=== PATIENT | male | born 1975 | race Caucasian/White ===

== ENCOUNTER 2016-10-20 11:13 | Day surgery (SDC) | payer OTHER, SELFPAY ==
[2016-10-13 10:00] LABS: HEMATOCRIT 38.8 % (40.0-51.0); HEMOGLOBIN 11.9 g/dL (13.6-17.8)
--- NOTE | ~2016-10-20 | OP ---
Record Of Operation [facility] [address] [facility] [place]. [address] NAME: KIKI FERRIS MARIETTA : 73 STATUS : [facility]#: [id number] AGE: 41 ADM/REG DATE : 10/20/16 MR#: [id number] REPORT SERV DATE: 10/26/16 DICTATED BY: ADRIANA YEPEZ DATE: 10/25/16 REPORT STATUS : Draft TRANSCRIBED BY: MODL DATE: 10/25/16 DATE OF PROCEDURE: 10/20/2016 PREOPERATIVE DIAGNOSES: 1. Malignant melanoma, anterior abdominal wall periumbilical area. This is a superficial spreading type, thickness 0.35 mm Bull's level 2 with 0 mitotic rate, no ulceration. Associated with dysplastic compound nevus. Tumor is a T1a N0, M0, is status post excisional biopsy. 2. History of Root syndrome. 3. Status post total proctocolectomy with ileoanal J-pouch anastomosis for a multicentric colorectal adenocarcinoma. 4. Status post neoadjuvant chemo and radiation therapy. 5. Creation of diverting ileostomy right lower quadrant. OPERATION: 1. Wide radical resection of skin and subcutaneous tissues of the anterior abdominal wall periumbilical area. 2. Repair of soft tissue defect. POSTOPERATIVE DIAGNOSES: 1. Malignant melanoma, anterior abdominal wall periumbilical area. This is a superficial spreading type, thickness 0.35 mm Bull's level 2 with 0 mitotic rate, no ulceration. Associated with dysplastic compound nevus. Tumor is a T1a N0, M0, is status post excisional biopsy. 2. History of Root syndrome. 3. Status post total proctocolectomy with ileoanal J-pouch anastomosis for a multicentric colorectal adenocarcinoma. 4. Status post neoadjuvant chemo and radiation therapy. 5. Creation of diverting ileostomy right lower quadrant. SURGEON: Adriana Yepez M.D. [employer]ING MACHINE OPERATOR RESIDENT SURGEON: Dr. Abel Negro. ANESTHESIA: General. COMPLICATIONS: None. ESTIMATED BLOOD LOSS: Minimal. COUNTS: Correct. DISPOSITION: PACU, then to be discharged home. SPECIMENS TO PATHOLOGY: Skin and subcutaneous tissues. Area resected measures approximately 12 x 4.5 cm and include the prior biopsy scar. A Record Of Operation [facility] [address] [facility] [place]. [address] NAME: KIKI FERRIS MARIETTA : 73 STATUS : [facility] PAT#: [id number] AGE: 41 ADM/REG DATE : 10/20/16 MR#: [id number] REPORT SERV DATE: 10/26/16 DICTATED BY: ADRIANA YEPEZ DATE: 10/25/16 REPORT STATUS : Draft TRANSCRIBED BY: MODL DATE: 10/25/16 minimum of 1.5 to 2 cm circumferential to the area in all directions and the underlying subcutaneous tissues down to the superficial aponeurosis. Informed consent obtained. Background diagnosed in April of 2016 at the time of total abdominal proctocolectomy with ileoanal anastomosis J-pouch. The pigmented lesion was found at the upper end of the previous surgical scar. The patient was undergoing additional treatments. He has a diverting ileostomy in the right lower quadrant in the vicinity of this area. We discussed the options in management. We agreed to proceed with wide excision with primary repair, understood the potential infectious complications due to the location of the area and the proximity to the ileostomy. The patient initially wanted to do this at the time of the repair of the ileostomy but we chose to do it prior to that as the closure of the ileostomy will be delayed. SUMMARY: Dr. Jarvis completed his portion of the operation with inspection of the J-pouch and possible dilatation. We marked the site of the melanoma at the upper end of the incision in agreement with the description by Dr. Jarvis who marked the area. The area of the prior biopsy measured a minimum of 1.5 cm margins to 2 cm margins circumferential to the prior area. The diameter of the area to be resected is approximately 4.5 cm and include the prior scar and the additional margins. We did not do a sentinel node biopsy as the lesion is 0.35 mm, has 0 mitosis, and Bull's level 2 without ulceration. The incision was designed in an oblique direction to avoid the area of the diverting ileostomy. The incision was carried down into the full thickness of the underlying subcutaneous tissue. This was an elliptical incision to achieve a primary closure. The incision was carried down all the way down to the underlying aponeurosis. Part of the proximity of the umbilical area was resected with this. Hemostasis was achieved by means of electrocoagulation and a few ligatures of 3-0 Vicryl. The specimen was removed, oriented, labeled, and sent to pathology for analysis. There was no evidence of any in-transit disease or additional lesions in the vicinity of the prior scar. Once we have achieved hemostasis, the field was irrigated with normal saline solution and a small amount of hydrogen peroxide. The subcutaneous tissues were approximated with interrupted sutures of 2-0 Vicryl, the dermis with interrupted sutures of 2-0 and 3-0 Vicryl, and the skin with interrupted sutures of 3-0 monofilament. Sterile dressings were applied. The field was irrigated with 0.25% Marcaine for postoperative pain control. The pouch was reapplied. We have controlled the leak by preparing the area in an isolated fashion. We ploughed at the pouch with a Gel-Foam initially. We prepped the area, covered it with Tegaderm, and then we have prepped again the entire field to try to minimize the risk of infection. In this fashion, we had the pouch totally isolated, previously prepped, and then prepped again on top of the Tegaderm and then placed an Ioban. Record Of Operation [address] [address] NAME: KIKI FERRIS : 73 STATUS : [facility] PAT#: [id number] AGE: 41 ADM/REG DATE : 10/20/16 MR#: [id number] REPORT SERV DATE: 10/26/16 DICTATED BY: ADRIANA YEPEZ. DATE: 10/25/16 REPORT STATUS : Draft TRANSCRIBED BY: DEEPIKA DATE: 10/25/16 At the completion of the procedure, an exit time-out protocol was enforced. A time-out protocol was enforced at the beginning of the case and the patient had received prophylactic antibiotic therapy. There were no complications. No unexpected events. Counts were correct. Await path report to make long-term therapeutic recommendations. was informed. Contact information including my cell number provided. JOSE G/DEEPIKA Adriana Yepez M.D. / [phone] CC: Jossie Humphrey NP Jonathan T Whaley, MD Bertrand Marquess Anz III, M.D. Jamil Calvo MD
--- NOTE | ~2016-10-20 | OP ---
Record Of Operation [facility] [address] [place]. [address] NAME: KIKI FERRIS : 73 STATUS : [facility]#: [id number] AGE: 41 ADM/REG DATE : 10/20/16 MR#: [id number] REPORT SERV DATE: 10/20/16 DICTATED BY: LUISA MCNEILL DATE: 10/20/16 REPORT STATUS : Draft TRANSCRIBED BY: MODL DATE: 10/20/16 DATE OF PROCEDURE: 10/20/2016 PREOPERATIVE DIAGNOSIS: Anal anastomotic stricture. POSTOPERATIVE DIAGNOSIS: Anal anastomotic stricture. PROCEDURE: Anal exam and dilatation of stricture. SURGEON: Garret Mcneill M.D. ANESTHESIA: General. ESTIMATED BLOOD LOSS: Less than 20 mL. INDICATION: Mr. Ferris is a 41-year-old male post restorative proctocolectomy, has had radiation. He had some induration and stricture, and prior to stoma closure, wanted to investigate the degree of stricturing and perform a stricturoplasty or proctoplasty as needed. This was to be done in conjunction with a procedure done by Dr. Yepez as well. The risks were discussed as outlined in his office note and he agreed to proceed. DESCRIPTION OF PROCEDURE: The patient was taken to the operating room and placed in the supine position. Given general anesthetic. Lower extremities were placed in stirrups and well padded. The anal area was prepped and draped. An examined the area with first a visual exam. There was a stricture, which I was able to dilate fairly well. However, the main problem seemed to be extensive induration likely from radiation change mainly the levators. There are also some induration anteriorly. However, the anastomosis appeared to be excellent and viable. I did not think I could help him with the proctoplasty at this time. I need to rely just on the dilatation and see how he would function by likely placing anterograde fluid through the pouch to see how he would empty. Thinking that, I have optimized his opportunity for bowel continuity at this time in preparation for ileostomy closure. Therefore, the procedure was terminated. He tolerated this part of the procedure well and Dr. Yepez was to proceed with his portion of the procedure. JUANITO/GERIL Garret Mcneill M.D. / [id number] CC: Jossie Humphrey NP
[~2016-10-20 11:13] MED LIST: ENDOCET1 TA3 PO; LOM PO; MELA3 PO; PCET PO; PREV15 PO; X5 PO; ZOL50 PO
[2016-10-20 12:24] LABS: BASOPHILS 0.6 %; BASOPHILS ABSOLUTE 0.03 10/3/uL (0.0-0.16); EOSINOPHILS 4.7 %; EOSINOPHILS ABSOLUTE 0.25 10/3/uL (0.0-0.53); HEMOGLOBIN 11.9 g/dL (13.6-17.8); IMMATURE GRANULOCYTES 0.2 %; IMMATURE GRANULOCYTES ABSOLUTE 0.01 10/3/uL (0.0-0.11); LYMPHOCYTES 16.2 %; LYMPHOCYTES ABSOLUTE 0.86 10/3/uL (0.67-4.30); MANUAL DIFF NO %; MEAN CORPUS HGB CONC 30.5 g/dL (32.0-36.0); MEAN CORPUSCULAR VOLUME 85.2 fL (80-100); MEAN PLATELET VOLUME 9.7 fL (9.2-13.0); MONOCYTES 7.7 %; MONOCYTES ABSOLUTE 0.41 10/3/uL (0.21-1.20); NEUTROPHILS 70.6 %; NEUTROPHILS ABSOLUTE 3.75 10/3/uL (2.02-8.40); PLATELET COUNT 231 10/3/uL (150-400); RED CELL COUNT 4.58 10/6/uL (4.7-6.1); WHITE BLOOD CELLS 5.3 10/3/uL (4.5-10.5)
[2016-10-20 12:35] LABS: CALCIUM, SERUM 8.4 MG/DL (8.5-10.4); CHLORIDE, SERUM 106 MMOL/L (96-112); CO2 (CARBON DIOXIDE) 25 MMOL/L (24-34); CREATININE 0.97 MG/DL (0.70-1.30); GFR AFRICAN AMERICAN 111 ML/MIN (>=60); GFR NON AFRICAN AMERICAN 96 ML/MIN (>=60); SODIUM, SERUM 138 MMOL/L (135-148)
[2016-10-20 12:40] LABS: BUN (BLOOD UREA NITROGEN) 12 MG/DL (6-23); GLUCOSE, SERUM 75 MG/DL (60-99); POTASSIUM, SERUM 4.6 MMOL/L (3.5-5.3)
[2016-11-24] MEDS ORDERED: MULTIVIT/MIN PO (10:12)
[2016-11-24] MEDS ORDERED: ACET500CAP PO (10:13)
[2017-03-04] MEDS ORDERED: REG PO (10:47)
[2017-03-04] MEDS ORDERED: ULTRAM50 PO (10:47)
== END 2016-10-20 18:55 | disposition home or self-care (01) ==
LOC: SDC 11:13
PROVIDERS: Colon & Rectal Surgery; Surgery
PROC: 0WBF0ZZ Excision of Abdominal Wall, Open Approach (ICD-10-PCS; principal; 2016-10-20 12:45)
PROC: 0D7Q0ZZ Dilation of Anus, Open Approach (ICD-10-PCS; 2016-10-20 12:45)
DX: C49.4 Malignant neoplasm of connective and soft tissue of abdomen (principal); K62.4 Stenosis of anus and rectum; K21.9 Gastro-esophageal reflux disease without esophagitis; F41.9 Anxiety disorder, unspecified; F32.9 Major depressive disorder, single episode, unspecified; Z92.3 Personal history of irradiation; Z92.21 Personal history of antineoplastic chemotherapy; Z87.891 Personal history of nicotine dependence; Z88.5 Allergy status to narcotic agent; Z98.890 Other specified postprocedural states; Z79.899 Other long term (current) drug therapy
CPT/HCPCS: 80048; 85014; 85018; 85025; 88305; A9270-GY; J0690; J2250; J2405; J2710; J2795; J3010

== ENCOUNTER 2016-12-03 11:16 | Inpatient (IN) | payer OTHER, SELFPAY ==
[2016-11-26 17:26] LABS: BASOPHILS 0.5 %; BASOPHILS ABSOLUTE 0.04 10/3/uL (0.0-0.16); EOSINOPHILS 2.9 %; EOSINOPHILS ABSOLUTE 0.24 10/3/uL (0.0-0.53); IMMATURE GRANULOCYTES 0.1 %; IMMATURE GRANULOCYTES ABSOLUTE 0.01 10/3/uL (0.0-0.11); LYMPHOCYTES 10.1 %; LYMPHOCYTES ABSOLUTE 0.84 10/3/uL (0.67-4.30); MEAN CORPUS HGB CONC 31.7 g/dL (32.0-36.0); MEAN CORPUSCULAR HEMOGLOB 25.9 pg (26.0-34.0); MONOCYTES ABSOLUTE 0.75 10/3/uL (0.21-1.20); NEUTROPHILS 77.4 %; NEUTROPHILS ABSOLUTE 6.46 10/3/uL (2.02-8.40); PLATELET COUNT 297 10/3/uL (150-400); RBC DISTRIBUTION WIDTH 15.8 % (12.0-16.0); RED CELL COUNT 5.01 10/6/uL (4.7-6.1)
[2016-11-26 17:32] LABS: MANUAL DIFF NO %; MEAN CORPUSCULAR VOLUME 81.8 fL (80-100); WHITE BLOOD CELLS 8.3 10/3/uL (4.5-10.5)
[2016-11-26 17:43] LABS: CHLORIDE, SERUM 102 MMOL/L (96-112); CO2 (CARBON DIOXIDE) 28 MMOL/L (24-34); CREATININE 1.04 MG/DL (0.70-1.30); GFR AFRICAN AMERICAN 102 ML/MIN (>=60); GFR NON AFRICAN AMERICAN 88 ML/MIN (>=60); GLUCOSE, SERUM 76 MG/DL (60-99); POTASSIUM, SERUM 4.3 MMOL/L (3.5-5.3); SODIUM, SERUM 139 MMOL/L (135-148)
[2016-11-26 17:44] LABS: BUN (BLOOD UREA NITROGEN) 20 MG/DL (6-23); CALCIUM, SERUM 9.4 MG/DL (8.5-10.4)
--- NOTE | ~2016-12-03 | OP ---
Record Of Operation [facility] [address] [facility] [place]. [address] NAME: KIKI FERRIS : 73 STATUS : ADM IN PAT#: [id number] AGE: 41 ADM/REG DATE : 12/03/16 MR#: [id number] REPORT SERV DATE: 12/04/16 DICTATED BY: LUISA MCNEILL DATE: 12/03/16 REPORT STATUS : Draft TRANSCRIBED BY: MODL DATE: 12/03/16 DATE OF PROCEDURE: 12/03/2016 PREOPERATIVE DIAGNOSES: 1. History of Root syndrome and rectal cancer status post total abdominal colectomy with ileoprocto reconstruction. 2. Unwanted ileostomy. 3. Unwanted Port-A-Cath. 4. Abdominal scar contracture. POSTOPERATIVE DIAGNOSES: 1. History of Root syndrome and rectal cancer status post total abdominal colectomy with ileoprocto reconstruction. 2. Unwanted ileostomy. 3. Unwanted Port-A-Cath. 4. Abdominal scar contracture. PROCEDURE: 1. Removal of Port-A-Cath. 2. Excision and revision of abdominal scar contracture. 3. Ileostomy takedown with hand-sewn and a 2-layer anastomosis. ATTENDING SURGEON: Garret Mcneill M.D. CHIEF RESIDENT SURGEON: Raquel Cristina M.D. ANESTHESIA: General endotracheal anesthesia. SPECIMENS: 1. Port for ID. 2. Abdominal scar. 3. Ileostomy spur. BLOOD LOSS: Approximately 30 mL. COMPLICATIONS: None. INDICATION: Mr. Ferris is a 41-year-old male, who had a history of Root syndrome and had rectal cancer. He has undergone a total abdominal colectomy as well as treatment of his rectal cancer with chemo-radiation. He has not completed all of that and would like his diverting ileostomy reversed as well as his port removed. Additionally, the patient noted that from his prior midline, he had a scar contracture at the inferior margin that was troublesome to him and uncomfortable, and he requested revision of this. Risks and benefits were discussed with the patient as well as alternatives questions were sought and answered. The patient wished to proceed. Record Of Operation [facility] [address] [facility] [place]. [address] NAME: KIKI FERRIS : 73 STATUS : ADM IN PAT#: [id number] AGE: 41 ADM/REG DATE : 12/03/16 MR#: [id number] REPORT SERV DATE: 12/04/16 DICTATED BY: LUISA MCNEILL DATE: 12/03/16 REPORT STATUS : Draft TRANSCRIBED BY: DEEPIKA DATE: 12/03/16 DESCRIPTION OF OPERATION: The patient was brought to the operating room, placed supine on the operating table. After satisfactory induction of general endotracheal anesthesia, the left upper chest around the area of the port was prepped and draped in the usual sterile fashion. A time-out was performed with all operating staff present, and the patient received appropriate preoperative antibiotics. We began by making an incision over the site of the prior scar from the port placement and then dissected down to the port and the catheter using sharp dissection with scissors. A 3-0 Vicryl suture pursestring was placed around the catheter tract, and then the catheter was removed and the suture tightened down. We then used sharp dissection with scissors to remove the capsule overlying the port, and the port itself was removed and passed off the table. We then irrigated this cavity and suction returned clear. The skin edges were reapproximated using 3-0 Vicryl suture in deep dermal fashion. Sterile dressing was placed over this, and then we proceeded to the abdomen. The patient's ileostomy bag was removed, and the abdomen was then prepped and draped in usual sterile fashion separately. We covered the ileostomy with a Ray-Claudia and proceeded to excise the scar. The portion of the scar that required excision was approximately 4 cm in length and an elliptical longitudinal midline excision was performed over the scar tissue and then with a scalpel, and then this was further dissected off using Bovie electrocautery. This was then irrigated and the skin edges reapproximated with 3-0 Vicryl in interrupted deep dermal fashion. This gave a good cosmetic result as well as removed the area of stricture that was causing the patient prior discomfort. We then placed a sterile dressing of Telfa and Tegaderm over this and then proceeded to the ileostomy take down. The ileostomy spur was excised in elliptical fashion transversely including the surrounding skin. We then dissected down until we reached the edges of the bowel wall. Initially, we dissected this with Bovie electrocautery and then switched to Metzenbaum scissors. We then dissected out the entirety of the ileostomy spur down to the level of fascia and freed this from the fascia circumferentially. We used a 75 SHEN stapler to staple off the ileostomy spur, and some transected portion was passed off the table as specimen. This facilitated us in finishing our circumferential dissection around the prior ileostomy site. Once we had accomplished this, we felt that we did not have enough length of bowel left in order to reanastomose the two ends of the ileum with stapler, and therefore we elected to do a hand- sewn end-to-end two layer anastomosis. We therefore ran an inner layer circumferentially with 3-0 Vicryl. Once we had completed our inner layer, we then completed a circumferential outer layer using interrupted 3-0 silk suture in Lembert fashion. Once we had finished, we were able to palpate this, and we have an adequate lumen. The small bowel was then reduced back into the abdomen underneath the prior ostomy site. We then reapproximated posterior fascia using first a running 0-PDS from medial to lateral and then switched to a 0-Vicryl and UR-6 and ran this from lateral to medial. The two sutures met in the middle and were tied. In a similar fashion, we then reapproximated the anterior fascia. The anterior layer was closed with a running 0 Vicryl and UR6. We then irrigated this cavity, and a single 3-0 Vicryl was used in deep dermal fashion at the center to reapproximate the skin edges. We then placed gauze lindsey within the wound, and then a sterile dressing was placed over top of this. All prior incision sites already had sterile dressings, and therefore the drapes were removed. The patient was able to be extubated in the operating room and transferred to PACU in stable condition. There were no obvious complications during the case, and Dr. Mcneill Record Of Operation [address] [place]. [address] NAME: KIKI FERRIS : 73 STATUS : ADM IN PAT#: [id number] AGE: 41 ADM/REG DATE : 12/03/16 MR#: [id number] REPORT SERV DATE: 12/04/16 DICTATED BY: LUISA MCNEILL DATE: 12/03/16 REPORT STATUS : Draft TRANSCRIBED BY: DEEPIKA DATE: 12/03/16 the attending was present and scrubbed for the entirety of the case. DICTATED BY: Raquel Cristina MD SE/DEEPIKA Garret Mcneill M.D. / [id number] CC: Garret Mcneill M.D.
[~2016-12-03 11:16] MED LIST changes: +ACET500CAP PO; +MULTIVIT/MIN PO
[2016-12-04] MEDS ORDERED: OXYCOD PO (15:00)
[2017-03-04] MEDS ORDERED: REG PO (10:47)
[2017-03-04] MEDS ORDERED: ULTRAM50 PO (10:47)
== END 2016-12-04 16:04 | disposition home or self-care (01) | DRG 331 ==
LOC: SDC/OF 11:16 → PACU 17:20 → 5SO 18:27
PROVIDERS: Colon & Rectal Surgery
PROC: 0HB7XZZ Excision of Abdomen Skin, External Approach (ICD-10-PCS; 2016-12-03)
PROC: 3E0T3CZ (ICD-10-PCS; 2016-12-03)
PROC: 0DBB0ZZ Excision of Ileum, Open Approach (ICD-10-PCS; principal; 2016-12-03 13:15)
DX: Z43.2 Encounter for attention to ileostomy (principal); F17.210 Nicotine dependence, cigarettes, uncomplicated; L90.5 Scar conditions and fibrosis of skin; Z85.048 Personal history of other malignant neoplasm of rectum, rectosigmoid junction, and anus; Z90.49 Acquired absence of other specified parts of digestive tract; Z98.890 Other specified postprocedural states; Z86.010 Personal history of colon polyps; Z80.0 Family history of malignant neoplasm of digestive organs; Z88.8 Allergy status to other drugs, medicaments and biological substances; Z79.899 Other long term (current) drug therapy
CPT/HCPCS: 80048; 85025; 88300; 88302; 88304; 88305; A9270-GY; J0690; J1885; J2250; J2405; J2710; J2795; J3010

== ENCOUNTER 2016-12-05 17:03 | Inpatient (IN) | payer OTHER ==
--- NOTE | ~2016-12-05 | DS ---
Discharge Summary [facility] [address] [place]. [address] NAME: KIKI FERRIS : 73 STATUS : DIS IN PAT#: [id number] AGE: 41 ADM/REG DATE : 12/05/16 MR#: [id number] REPORT SERV DATE: 12/17/16 DICTATED BY: LUISA MCNEILL DATE: 12/16/16 REPORT STATUS : Draft TRANSCRIBED BY: DEEPIKA DATE: 12/16/16 Data Collection from hospitalization DISCHARGE DIAGNOSES: 1. Undesired ileostomy. 2. Rectal cancer, status post colectomy. 3. Anemia. 4. History of skin cancer. 5. Tobacco use. CONSULTATIONS: None. PROCEDURES: None. DISCHARGE MEDICATIONS: Tylenol caplet 1000 mg every six hours as needed, Xanax 0.5 mg every four hours as needed, Lomotil 5 mg four times a day as needed, Prevacid 15 mg every morning, multivitamins with minerals one tablet daily, Roxicodone 5 mg one to two tablets every four hours as needed, Zoloft 50 mg every evening. CONDITION AT DISCHARGE: Stable. DISPOSITION: The patient was discharged home on a regular diet with activities as instructed. He will follow up with me two weeks following discharge. HOSPITAL COURSE: This is a 41-year-old man who has a history of rectal cancer. He has been discharged on the day prior to this admission. He had a large amount of food and said he felt nauseated and had an episode of emesis on the morning of this admission. He presented to an outside emergency department and a CT scan was consistent with postop changes. There was no evidence of a leak. Since transfer here, he had a bowel movement and resolution of his nausea. He had been afebrile. His vital signs have been stable. He said he was feeling much better. He was admitted to the hospital at this time for further evaluation and treatment. Upon admission, his symptoms were resolving. He is now postop day 2, status post ileostomy. He was going to be observed overnight at this time. He may be advanced to full liquids the following morning, but clear liquids were being given for now. On the 2nd, he did have lower abdominal pain and cramping that morning. Liquids were going to be given. His abdomen was soft and nondistended. His incisions were clean, dry, and intact. The next day, he said he was feeling better. He did have a bowel movement. Discharge planning was performed. On 12/08/2016, he said he felt great. He was eating well. Discharge instructions were given. Due to his improved and stable condition, he was discharged home with the above-stated instructions. Information collected by: Renate Ayon I submit the above information as my discharge summary. Discharge Summary [address] [place] [address] NAME: KIKI FERRIS : 73 STATUS : DIS IN PAT#: [id number] AGE: 41 ADM/REG DATE : 12/05/16 MR#: [id number] REPORT SERV DATE: 12/17/16 DICTATED BY: LUISA MCNEILL DATE: 12/16/16 REPORT STATUS : Draft TRANSCRIBED BY: DEEPIKA DATE: 12/16/16 TG/DEEPIKA Garret Mcneill M.D. / [id number] CC: Jossie Humphrey Vicky L
[~2016-12-05 17:03] MED LIST changes: +OXYCOD PO
[2016-12-06 09:55] LABS: BASOPHILS 0.2 %; BASOPHILS ABSOLUTE 0.02 10/3/uL (0.0-0.16); EOSINOPHILS 1.1 %; EOSINOPHILS ABSOLUTE 0.09 10/3/uL (0.0-0.53); HEMATOCRIT 36.8 % (40.0-51.0); HEMOGLOBIN 11.5 g/dL (13.6-17.8); IMMATURE GRANULOCYTES 0.2 %; IMMATURE GRANULOCYTES ABSOLUTE 0.02 10/3/uL (0.0-0.11); LYMPHOCYTES 4.9 %; LYMPHOCYTES ABSOLUTE 0.42 10/3/uL (0.67-4.30); MANUAL DIFF NO %; MEAN CORPUS HGB CONC 31.3 g/dL (32.0-36.0); MEAN CORPUSCULAR HEMOGLOB 26.1 pg (26.0-34.0); MEAN CORPUSCULAR VOLUME 83.6 fL (80-100); MEAN PLATELET VOLUME 9.6 fL (9.2-13.0); MONOCYTES ABSOLUTE 1.11 10/3/uL (0.21-1.20); NEUTROPHILS 80.6 %; PLATELET COUNT 260 10/3/uL (150-400); WHITE BLOOD CELLS 8.6 10/3/uL (4.5-10.5)
[2016-12-06 10:07] LABS: BUN (BLOOD UREA NITROGEN) 7 MG/DL (6-23); CALCIUM, SERUM 8.5 MG/DL (8.5-10.4); CHLORIDE, SERUM 108 MMOL/L (96-112); CO2 (CARBON DIOXIDE) 29 MMOL/L (24-34); CREATININE 0.87 MG/DL (0.70-1.30); GFR AFRICAN AMERICAN 123 ML/MIN (>=60); GFR NON AFRICAN AMERICAN 106 ML/MIN (>=60); GLUCOSE, SERUM 127 MG/DL (60-99); POTASSIUM, SERUM 4.2 MMOL/L (3.5-5.3); SODIUM, SERUM 142 MMOL/L (135-148)
[2017-03-04] MEDS ORDERED: REG PO (10:47)
[2017-03-04] MEDS ORDERED: ULTRAM50 PO (10:47)
== END 2016-12-08 09:40 | disposition home or self-care (01) | DRG 395 ==
LOC: 5SO 17:03
DX: K91.3 Postprocedural intestinal obstruction (principal); G89.18 Other acute postprocedural pain; Z88.5 Allergy status to narcotic agent; Z93.2 Ileostomy status; Z79.899 Other long term (current) drug therapy
CPT/HCPCS: 74176; 80048; 80053; 83690; 85025; 96374; 96375; 96376; 99285; A9270-GY; J1170; J2405

== ENCOUNTER 2017-01-30 14:00 | Emergency (ER) | payer OTHER ==
[2017-01-30 15:24] LABS: BASOPHILS 0.3 %; BASOPHILS ABSOLUTE 0.02 10/3/uL (0.0-0.16); EOSINOPHILS 0.6 %; EOSINOPHILS ABSOLUTE 0.05 10/3/uL (0.0-0.53); ER CBC TAT 0 Hrs 18 Mins; HEMATOCRIT 35.8 % (40.0-51.0); HEMOGLOBIN 11.1 g/dL (13.6-17.8); IMMATURE GRANULOCYTES 0.4 %; IMMATURE GRANULOCYTES ABSOLUTE 0.03 10/3/uL (0.0-0.11); LYMPHOCYTES 11.7 %; LYMPHOCYTES ABSOLUTE 0.91 10/3/uL (0.67-4.30); MEAN CORPUSCULAR HEMOGLOB 25.9 pg (26.0-34.0); MEAN CORPUSCULAR VOLUME 83.4 fL (80-100); MEAN PLATELET VOLUME 10.6 fL (9.2-13.0); MONOCYTES 6.8 %; MONOCYTES ABSOLUTE 0.53 10/3/uL (0.21-1.20); NEUTROPHILS 80.2 %; NEUTROPHILS ABSOLUTE 6.25 10/3/uL (2.02-8.40); RBC DISTRIBUTION WIDTH 17.2 % (12.0-16.0); RED CELL COUNT 4.29 10/6/uL (4.7-6.1); WHITE BLOOD CELLS 7.8 10/3/uL (4.5-10.5)
[2017-01-30 15:25] LABS: MANUAL DIFF NO %; PLATELET COUNT 279 10/3/uL (150-400)
[2017-01-30 15:26] LABS: WBC (NOT ORDERED) (RFLEX) 0 (0-5)
[2017-01-30 15:38] LABS: ASCORBIC ACID (UR NOT ORDER) NEG (NEG); BILIRUBIN, URINE NEGATIVE (NEG); ER URINALYSIS TAT 0 Hrs 13 Mins; KETONE, URINE NEGATIVE (NEG); LEUKOCYTE ESTERASE(NOT OR NEG (NEG); NITRITE (URINE) NEG (NEG)
[2017-01-30 15:43] LABS: A/G RATIO 1.1 (0.7-1.9); ALBUMIN 3.3 G/DL (3.5-5.0); ALKALINE PHOSPHATASE 72 U/L (45-117); BUN (BLOOD UREA NITROGEN) 10 MG/DL (6-23); CALCIUM, SERUM 8.6 MG/DL (8.5-10.4); CHLORIDE, SERUM 111 MMOL/L (96-112); CO2 (CARBON DIOXIDE) 26 MMOL/L (24-34); CREATININE 0.76 MG/DL (0.70-1.30); GFR AFRICAN AMERICAN 130 ML/MIN (>=60); GFR NON AFRICAN AMERICAN 113 ML/MIN (>=60); GLOBULIN 3.1 G/DL (2.5-4.1); GLUCOSE, SERUM 81 MG/DL (60-99); POTASSIUM, SERUM 3.9 MMOL/L (3.5-5.3); SGOT(AST) 15 U/L (5-40); SGPT(ALT) 24 U/L (5-65); SODIUM, SERUM 142 MMOL/L (135-148); TOTAL BILIRUBIN 0.5 MG/DL (0-1.2); TOTAL PROTEIN 6.4 G/DL (6.0-8.5)
[2017-03-04] MEDS ORDERED: REG PO (10:47)
[2017-03-04] MEDS ORDERED: ULTRAM50 PO (10:47)
== END 2017-01-30 16:35 | disposition home or self-care (01) ==
LOC: ER 14:00
PROVIDERS: Nurse Practitioner
DX: K62.89 Other specified diseases of anus and rectum (principal); D64.9 Anemia, unspecified; Z85.038 Personal history of other malignant neoplasm of large intestine; Z88.5 Allergy status to narcotic agent; Z88.6 Allergy status to analgesic agent; Z79.899 Other long term (current) drug therapy
CPT/HCPCS: 74176; 80053; 81001; 83690; 85025; 96374; 96375; 99285; J1170; J2405

== ENCOUNTER 2017-02-23 10:09 | Inpatient (IN) | payer OTHER ==
--- NOTE | ~2017-02-23 | CN ---
Consultation Report [facility] [address] [place]. [address] NAME: KIKI FERRIS : 73 STATUS : ADM IN PAT#: [id number] AGE: 41 ADM/REG DATE : 02/23/17 MR#: [id number] REPORT SERV DATE: 02/23/17 DICTATED BY: EMMA DIXON DATE: 02/23/17 REPORT STATUS : Draft TRANSCRIBED BY: MODL DATE: 02/23/17 SURGERY CONSULT NOTE DATE OF CONSULTATION: 02/23/2017 RESIDENT PHYSICIAN: Dr. Israel Orona. REASON FOR CONSULTATION: Ileitis. HISTORY OF PRESENT ILLNESS: A 41-year-old male, status post total proctocolectomy, J-pouch on 04/30/2016 with ileostomy takedown on 12/04/2016 by Garret Jarvis. The patient presents with approximately 2-week history of abdominal pain, cramping, and extensive diarrhea. He was seen and scoped by Dr. Burrows and found to have some ileitis and inflammation, possible inflammatory bowel disease. The patient presents today with worsening pain and terrible diarrhea. CT today showed approximately 20 cm segment of small bowel that is edematous, inflamed. The J-pouch, however, is not involved. His CRP is elevated, white blood cell count was normal. Of note, his lipase was elevated at 1433 but he does not endorse any epigastric pain and no evidence of pancreatitis on CT scan. He was started on Flagyl for his enteritis. PAST MEDICAL HISTORY: 1. Significant for Root syndrome. 2. Colorectal cancer. 3. Gastroesophageal reflux. 4. Superficial spreading melanoma on anterior abdominal wall. The patient received neoadjuvant chemotherapy and radiation. PAST SURGICAL HISTORY: 1. Total proctocolectomy and ileostomy takedown as well as port removal. 2. Excision of malignant melanoma on the anterior abdominal wall on 10/26/[address] Leobardo Yepez. SOCIAL HISTORY: Tobacco use. FAMILY HISTORY: Colorectal cancer. PHYSICAL EXAMINATION: VITAL SIGNS: Blood pressure 131/68, temperature 98.5, pulse 61. GENERAL: Alert and oriented x3. No acute distress. HEENT: Normocephalic, atraumatic. Extraocular muscles intact. NECK: Supple. Trachea midline. CARDIOVASCULAR: Regular rate and rhythm. LUNGS: Clear to auscultation. ABDOMEN: Soft, nondistended, tender in the right lower quadrant. No rebound tenderness. No guarding. Consultation Report [facility] [id number] [place]. [address] NAME: KIKI FERRIS : 73 STATUS : ADM IN [facility]#: [id number] AGE: 41 ADM/REG DATE : 02/23/17 MR#: [id number] REPORT SERV DATE: 02/23/17 DICTATED BY: EMMA DIXON SHIVANI DATE: 02/23/17 REPORT STATUS : Draft TRANSCRIBED BY: DEEPIKA DATE: 02/23/17 NEURO: No focal motor sensory deficits. EXTREMITIES: No edema. LABORATORY VALUES: Hemoglobin 12.7, hematocrit 37.5, white blood cell count 5.9, platelets 223. Lipase 1433. ASSESSMENT: A 41-year-old male with ileitis and elevated lipase. PLAN: 1. IV fluids, bowel rest. 2. IV antibiotics. 3. We will defer to GI for steroid use. 4. No acute surgical intervention needed at this time. We will be available. DICTATED BY: Israel Orona MD CB/DEEPIKA Emma Dixon MD / [id number] CC: Jossie Evans
--- NOTE | ~2017-02-23 | DS ---
Discharge Summary [facility] [address] [place]. [address] NAME: KIKI FERRIS : 73 STATUS : DIS IN PAT#: [id number] AGE: 41 ADM/REG DATE : 02/23/17 MR#: [id number] REPORT SERV DATE: 02/27/17 DICTATED BY: TINA SMITH DATE: 02/27/17 REPORT STATUS : Draft TRANSCRIBED BY: MODL DATE: 02/27/17 ADMISSION DATE: 02/23/2017 DISCHARGE DATE: 02/27/2017 DISCHARGE DIAGNOSES: 1. Enteritis/ileitis, improving. 2. Abdominal pain due to enteritis/ileitis, improved. 3. Diarrhea due to enteritis/ileitis, improved. 4. Colon cancer. Completed chemotherapy. 5. Weight loss. CONSULTATIONS: 1. Surgery, Dr. Oron[place], 02/23/2017. 2. GI, SEAN Francis, on 02/23/2017. IMAGING: CT of abdomen on 02/23/2017, impression: Abnormal loop of small bowel. Right lower quadrant appears inflamed. The imaging appearance suggests process such as Crohn's disease or other inflammatory. LABORATORY DATA: 02/27/2017, WBC 8.2, hemoglobin 9.7, hematocrit 31.9, and platelet count 195. Sodium 144, potassium 3.8, chloride 111, CO2 is 28, BUN 11, creatinine 0.90, glucose 77, calcium 9.1, phosphorus 3.7, and albumin 2.9. COURSE AT HOSPITAL STAY: Please refer to history and physical dictated by Dr. Cole on 02/23/2017 for complete admission details as well as consultation note. This patient is a 41-year-old male who presented in [facility] emergency room with complaints of abdominal pain. He does present with a history of colon and rectal cancer, status post total colectomy and colostomy. The patient presented with complaints of abdominal pain ongoing for approximately two weeks. The patient stated at the time of admission, he has been evaluated by Dr. Burrows several days prior to the admission. He had undergone a colonoscopy, biopsies were taken at that time. The patient was admitted to the hospital. Surgery and GI were consulted for further evaluation. The patient was noted enteritis/ileitis. Stool studies were obtained which were noted negative. Imaging was also obtained which is as noted above. Biopsies from colonoscopy were negative. The patient was started on Flagyl and Levaquin as well as Solu-Medrol. The patient did respond. The patient was also continued on Questran, Imodium, and Bentyl. At this time, the patient is stating decrease in number of stools per day. Stool consistency has thickened. Stating that abdominal pain has also decreased. The patient will be discharged home on Flagyl and Levaquin for additional seven days as well as prednisone 20 mg for additional seven days. The patient will also be prescribed Percocet 5 mg one every four to six hours p.r.n. for pain, #20. He will follow up with Dr. Neff in one week. The patient has also been encouraged to continue Ensure with meals and at bedtime and to also increase calorie intake. The patient did state understanding. DISCHARGE MEDICATIONS: Discharge Summary [address] [address] NAME: KIKI FERRIS : 73 STATUS : DIS IN PAT#: [id number] AGE: 41 ADM/REG DATE : 02/23/17 MR#: [id number] REPORT SERV DATE: 02/27/17 DICTATED BY: TINA SMITH DATE: 02/27/17 REPORT STATUS : Draft TRANSCRIBED BY: DEEPIKA DATE: 02/27/17 1. Questran 1 pack 4 g p.o. twice daily. 2. Welchol 625 mg 3 tabs p.o. twice daily. 3. Bentyl 20 mg one p.o. with meals and at bedtime. 4. Levaquin 750 mg one p.o. daily x7 days. 5. Imodium 2 mg, 4 mg p.o. with meals and at bedtime. 6. Prednisone 20 mg p.o. daily x7 days. 7. Zofran 4 mg p.o. every 6 hours p.r.n. for nausea. 8. Protonix 40 mg p.o. with breakfast. 9. Psyllium 1 pack p.o. twice daily. 10.Flagyl 500 mg one p.o. every eight hours x7 days. 11.Lomotil 2.5 to 5 mg p.o. every four hours p.r.n. 12.Ativan 0.5 mg to 1 mg p.o. twice daily p.r.n. for anxiety. 13.Nystatin topical powder one application topical twice daily. 14.Ibuprofen 800 mg p.o. twice daily p.r.n. 15.Lyrica 75 mg one p.o. every eight hours p.r.n. 16.Anaspaz 0.125 mg tab p.o. twice daily p.r.n. 17.Percocet 5 mg one p.o. every 4 to 6 hours p.r.n. for pain, #20. 18.Sitz baths p.r.n. for rectal discomfort. The patient is being discharged home in hemodynamically stable condition. We will follow up with Dr. Neff in one week. The patient and spouse stated understanding and agreed with the treatment plan. This discharge took greater than 30 minutes. DICTATED BY: Tina Smith NP [facility]MODL Tina Smith NP / [id number] CC: Jossie Evans NP
--- NOTE | ~2017-02-23 | HP ---
History And Physical [address] [place]. [address] NAME: KIKI FERRIS : 73 STATUS : ADM IN PAT#: [id number] AGE: 41 ADM/REG DATE : 02/23/17 MR#: [id number] REPORT SERV DATE: 02/23/17 DICTATED BY: JAYLEN COLE DATE: 02/23/17 REPORT STATUS : Draft TRANSCRIBED BY: MODL DATE: 02/23/17 DATE OF ADMISSION: 02/23/2017 CHIEF COMPLAINT: Abdominal pain. HISTORY OF PRESENT ILLNESS: The patient is a 41-year-old white male with a diagnosis of colon cancer and rectal cancer, status post total colectomy and colostomy and then a takedown, has been doing fairly well, but over the last two weeks, he has noted some abdominal pain and cramping. He has seen Dr. Burrows last Wednesday, underwent a colonoscopy, biopsies were taken. Report of which verbally talking to [place], nurse practitioner, was reported that he had some nonspecific ileitis, Crohn's versus inflammatory bowel, could not be discerned. Dr. Burrows had started him on Questran and continued his Lomotil to see if that would make a change. This patient continued to have significant abdominal pain and started having some blood in his stool, so he presented to the emergency room. He denied any nausea or vomiting. He has not had any chest pain or shortness of breath. He says he has significant pain. It hurts to walk. During his colonoscopy, it was also noted that he had some anorectal friability of the mucosa as well as some perianal inflammation. When he came to the emergency room, CT was done and his lipase was 433, so the ER physician's impression was that he had pancreatitis and the patient was referred for further treatment to the Hospitalist Service. REVIEW OF SYSTEMS: Rest of the 14-point review of systems was negative. PAST MEDICAL HISTORY: Significant for colorectal cancer with colostomy and then take down. He has gastroesophageal reflux disease as well. PAST SURGICAL HISTORY: Significant for total colectomy and rectal cancer removal by Dr. Felipe Jarvis. ALLERGIES: LIDOCAINE, HYDROCORTISONE, PROCTOFOAM, AND LEXAPRO. HOME MEDICATIONS: Questran 1 pack three times daily p.r.n., Welchol 3 tablets p.o. twice daily, Bentyl 20 mg p.o. every 8 hours, Lomotil 2.5 to 5 mg every four hours p.r.n., Nexium 20 mg p.o. daily, Anaspaz 0.125 mg to 0.25 mg twice daily, ibuprofen 800 mg p.o. twice daily p.r.n., Imodium 2 to 4 mg three times daily p.r.n., Ativan 0.5 and 1 mg p.o. twice daily, nystatin application twice topical p.r.n. to the rectal area rash, Lyrica 75 mg p.o. three times daily p.r.n., and Zoloft 50 mg once every morning. SOCIAL HISTORY: He did smoke two cigarettes yesterday, but not a typical smoker. No use of alcohol. No use of illicit substances. Currently employed. FAMILY HISTORY: Significant for Root syndrome and history of diabetes in parents. PHYSICAL EXAMINATION: GENERAL: White male, lying on a gurney, appears to be in no obvious respiratory distress. History And Physical [address] [address] NAME: KIKI FERRIS : 73 STATUS : ADM IN [facility]#: [id number] AGE: 41 ADM/REG DATE : 02/23/17 MR#: [id number] REPORT SERV DATE: 02/23/17 DICTATED BY: JAYLEN COLE DATE: 02/23/17 REPORT STATUS : Draft TRANSCRIBED BY: DEEPIKA DATE: 02/23/17 He is awake and alert. He is oriented. VITAL SIGNS: Blood pressure 134/61, temperature 98.2, pulse of 85, and saturation at 97%. HEENT: Head is normocephalic, atraumatic. Pupils are equal, round, and reactive to light. Extraocular muscles are intact. Sclerae anicteric. Conjunctivae normal. Oropharynx without lesion. Dry mucous membranes. Tongue protrusion midline. Uvula midline. NECK: Supple. No jugular venous distention. No carotid bruits or thyromegaly is appreciated. No lymphadenopathy in the neck is palpable. HEART: Regular rate rhythm. No murmurs, rubs, or gallops are heard. LUNGS: Clear to auscultation both anteriorly and posteriorly without rales, rhonchi, wheezing, or consolidation. ABDOMEN: Slightly tender. No rebound or guarding. No organomegaly. High-pitched active bowel sounds are noted. EXTREMITIES: Without cyanosis, clubbing, or edema. NEUROLOGICAL: Seems to be grossly intact. LABORATORY DATA: Lipase of 1400+. White count is 5.9, hemoglobin of 11.7, hematocrit 37.5, platelet count is 223,000. Sodium 138, potassium 3.6, chloride 107, bicarb 26, BUN 14, creatinine 0.84. Liver function studies are normal. Glucose of 103. Lactate level is 0.9. CT of the abdomen: Small bowel inflammation, normal pancreas, normal liver. IMPRESSION: 1. Probably enterocolitis. Rule out infectious source. 2. Status post treatment of colon cancer with total colectomy. 3. Gastroesophageal reflux. PLAN: The patient will be admitted as observation. IV fluids will be given. I will start IV Flagyl. We will obtain stool studies including C difficile. Biopsy reports from recent colonoscopy have been negative. I will ask GI to give me their opinion on whether this patient should be started on mesalamine for possibility of Crohn disease as suggested on the biopsy report from a recent colonoscopy. At this time, I do not find any evidence of pancreatitis in this patient. I will follow lipase clinically. I will hydrate him. We will give him a regular diet. I will review his medications. DISPOSITION: Pending above. MARIAA/DEEPIKA Jaylen Cole M.D. / [id number] CC: Jaylen Cole M.D. History And Physical [address] [address] NAME: KIKI FERRIS : 73 STATUS : ADM IN [facility]#: [id number] AGE: 41 ADM/REG DATE : 02/23/17 MR#: [id number] REPORT SERV DATE: 02/23/17 DICTATED BY: JAYLEN COLE DATE: 02/23/17 REPORT STATUS : Draft TRANSCRIBED BY: MODL DATE: 02/23/17 Lyssa Kaur, [employer] J. FelipeJossie Baltazar M.D. Bertrand Marquess Anz III, M.D.
--- NOTE | ~2017-02-23 | CN ---
Consultation Report [facility] [address] [place]. [address] NAME: KIKI FERRIS : 73 STATUS : ADM IN PAT#: [id number] AGE: 41 ADM/REG DATE : 02/23/17 MR#: [id number] REPORT SERV DATE: 02/23/17 DICTATED BY: TARYN VILLASEÑOR DATE: 02/23/17 REPORT STATUS : Draft TRANSCRIBED BY: MODL DATE: 02/23/17 GI CONSULTATION DATE OF CONSULTATION: 02/23/2017 REASON FOR CONSULTATION: Evaluation and management of abdominal pain, ileitis. HISTORY OF PRESENT ILLNESS: Mr. Ferris is a very pleasant 41-year-old male patient known to Dr. Deven Burrows in the outpatient setting, who presents with a chief complaint of abdominal pain and intractable diarrhea. 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 He had an ileoscopy with Dr. Burrows on 02/16/2017. Findings on that exam showed perianal exam to equal moderate perianal rash with excoriation question chemical versus fungal versus radiation related. He had moderate scarring noted at the anus with friability. He had a patent end-to-side ileoanal anastomosis, it was found in the surgical anastomosis which equaled friable mucosa. It was traversed. He had a normal terminal ilium which did receive biopsy. Pathology showed mild active ileitis. No granulomas. Differential diagnosis of NSAID related injury versus Crohn's. He had treatment with Lotrimin cream, Imodium, as well as Questran. He states that over the past few days, his stooling has increased to greater than 30 bowel movements per day. He has extreme abdominal pain as well as rectal pain thus prompting him to come into the hospital for further evaluation. He has had a poor appetite as well as poor p.o. intake secondary to resultant immediate stooling after any oral intake. He had a CT scan done on admission. contrasted exam showed abnormal loops of small bowel in the right lower quadrant. It appears to be inflamed. The imaging appearance, congestive process similar to Crohn's or other inflammatory enteritis. He had a white blood cell count of 5.9, hemoglobin was 11.7 with hematocrit 37.5, slightly elevated lipase in the 400 range. He was admitted for further evaluation. He has been started on Flagyl. He is having stool studies performed. No results are back yet. It is difficult to assess the patient as he is up and down multiple times during my visit going to the bathroom. I have discussed with the patient as well as Dr. Cole. We will keep him on his Flagyl. We will get Dr. Jarvis to see him to weigh in on this. We will also check a sed rate, CRP, and give symptomatic care. 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 PAST SURGICAL HISTORY: Includes a total colectomy as well as resultant ileo-procto reconstruction and Port-A-Cath placement with removal. SOCIAL HISTORY: He is employed outside of the home. He is . He does not have any biological children. No illicit drugs. No alcohol. No tobacco. FAMILY HISTORY: Positive for Root syndrome as well as colorectal cancer. Consultation Report [address] [place]. [address] NAME: KIKI FERRIS : 73 STATUS : ADM IN PAT#: [id number] AGE: 41 ADM/REG DATE : 02/23/17 MR#: [id number] REPORT SERV DATE: 02/23/17 DICTATED BY: TARYN VILLASEÑOR DATE: 02/23/17 REPORT STATUS : Draft TRANSCRIBED BY: DEEPIKA DATE: 02/23/17 ALLERGIES: PROCTOFOAM, LEXAPRO, AND LIDOCAINE. HOME MEDICATIONS: Cholestyramine, Welchol, Bentyl, Lomotil, Nexium, Anaspaz, Motrin, Imodium, Ativan, nystatin, Lyrica, and Zoloft. REVIEW OF SYSTEMS: A 10-point review of systems has been obtained with pertinent positives being addressed in the history of present illness. PHYSICAL EXAMINATION: VITAL SIGNS: Temperature is 98.2, pulse 75, respirations 16, and blood pressure 134/61. NEUROLOGIC: Reveals an alert, thin, frail-appearing male standing up in the room. GENERAL: He is cooperative. He is in no acute distress. He is awake, alert, and oriented x3. HEAD, EARS, EYES, NOSE, AND THROAT: Anicteric. Pupils equal, round, reactive to light and accommodation. Normocephalic and atraumatic. NECK: No JVD. No palpable nodes. CARDIOVASCULAR SYSTEM: Regular rate and rhythm. LUNGS: Diminished throughout. Normal respiratory effort exhibited. Equal expansion. ABDOMEN: Soft with tenderness noted to palpation with high-pitched hyperactive bowel sounds. EXTREMITIES: No edema. Normal distal pulses. RECTAL: Exam showed excoriation to bilateral buttocks as well as anus. PERTINENT LABORATORY DATA: Sodium 138, potassium 3.6, BUN is 14, and creatinine 0.84. White count 5.9, hemoglobin 11.7, hematocrit 37.5, and platelet count 223. Stool studies are pending. Lipase elevated in the 400 range. ASSESSMENT AND PLAN: 1. Abdominal pain secondary to questionable small-bowel inflammation. 2. Status post treatment of colorectal cancer, history of Root syndrome, status post total colectomy with ileostomy takedown. 3. CT scan with abnormal small bowel, right lower quadrant, inflamed Crohn's versus inflammatory enteritis. 4. Diarrhea. PLAN: 1. Check for C difficile, ova, parasites, wbc's, and culture and sensitivity. 2. We will add ProctoFoam rectally. 3. Zofran and Imodium scheduled as well as p.r.n. sitz baths. 4. Check a sed rate and therapy. 5. Continue IV Flagyl. 6. Have Dr. Jarvis see the patient for further input. We will follow. Consultation Report [address] [place]. [address] NAME: KIKI FERRIS : 73 STATUS : ADM IN PAT#: [id number] AGE: 41 ADM/REG DATE : 02/23/17 MR#: [id number] REPORT SERV DATE: 02/23/17 DICTATED BY: TARYN VILLASEÑOR DATE: 02/23/17 REPORT STATUS : Draft TRANSCRIBED BY: MODLauren DATE: 02/23/17 JESSICA/DEEPIKA SEAN Francis / [id number] CC: Jossie Evans NP
[2017-02-23 08:26] LABS: BASOPHILS 0.2 %; BASOPHILS ABSOLUTE 0.01 10/3/uL (0.0-0.16); EOSINOPHILS 0.7 %; EOSINOPHILS ABSOLUTE 0.04 10/3/uL (0.0-0.53); ER CBC TAT 0 Hrs 08 Mins; HEMATOCRIT 37.5 % (40.0-51.0); HEMOGLOBIN 11.7 g/dL (13.6-17.8); IMMATURE GRANULOCYTES 0.2 %; IMMATURE GRANULOCYTES ABSOLUTE 0.01 10/3/uL (0.0-0.11); LYMPHOCYTES 8.3 %; LYMPHOCYTES ABSOLUTE 0.49 10/3/uL (0.67-4.30); MANUAL DIFF NO %; MEAN CORPUS HGB CONC 31.2 g/dL (32.0-36.0); MEAN CORPUSCULAR HEMOGLOB 25.7 pg (26.0-34.0); MEAN CORPUSCULAR VOLUME 82.4 fL (80-100); MEAN PLATELET VOLUME 11.2 fL (9.2-13.0); MONOCYTES 7.6 %; MONOCYTES ABSOLUTE 0.45 10/3/uL (0.21-1.20); PLATELET COUNT 223 10/3/uL (150-400); RBC DISTRIBUTION WIDTH 16.5 % (12.0-16.0); RED CELL COUNT 4.55 10/6/uL (4.7-6.1); WHITE BLOOD CELLS 5.9 10/3/uL (4.5-10.5)
[2017-02-23 08:43] LABS: A/G RATIO 1.2 (0.7-1.9); ALBUMIN 3.7 G/DL (3.5-5.0); ALKALINE PHOSPHATASE 66 U/L (45-117); BUN (BLOOD UREA NITROGEN) 14 MG/DL (6-23); CALCIUM, SERUM 9.2 MG/DL (8.5-10.4); CHLORIDE, SERUM 107 MMOL/L (96-112); CO2 (CARBON DIOXIDE) 26 MMOL/L (24-34); CREATININE 0.84 MG/DL (0.70-1.30); GFR AFRICAN AMERICAN 125 ML/MIN (>=60); GFR NON AFRICAN AMERICAN 108 ML/MIN (>=60); GLOBULIN 3.2 G/DL (2.5-4.1); GLUCOSE, SERUM 103 MG/DL (60-99); POTASSIUM, SERUM 3.6 MMOL/L (3.5-5.3); SGOT(AST) 15 U/L (5-40); SGPT(ALT) 23 U/L (5-65); SODIUM, SERUM 138 MMOL/L (135-148); TOTAL BILIRUBIN 0.4 MG/DL (0-1.2); TOTAL PROTEIN 6.9 G/DL (6.0-8.5)
[2017-02-23 08:48] LABS: LACTATE 0.9 MMOL/L (0.3-2.4)
[2017-02-23] MEDS ORDERED: LOM PO (10:49)
[2017-02-23] MEDS ORDERED: NEXIUM20 M1 PO (10:49)
[2017-02-23] MEDS ORDERED: ZOL50 PO (10:50)
[2017-02-23] MEDS ORDERED: IMOD PO (10:50)
[2017-02-23] MEDS ORDERED: ATV.5 PO (10:50)
[2017-02-23] MEDS ORDERED: IBU800 PO (10:51)
[2017-02-23] MEDS ORDERED: NYSTATPOW TOP (10:51)
[2017-02-23] MEDS ORDERED: LYRICA75 PO (10:52)
[2017-02-23] MEDS ORDERED: ANASPAZ0.125 MG PO (10:54)
[2017-02-23] MEDS ORDERED: WELCHOL 625 MG625 MG PO (10:54)
[2017-02-23] MEDS ORDERED: BENTYL20 PO (10:54)
[2017-02-23] MEDS ORDERED: PREVALITE4 G1 PO (10:55)
[2017-02-23 14:23] LABS: PROCALCITONIN <0.05 ng/mL (<0.5)
[2017-02-24 05:42] LABS: BASOPHILS 0.4 %; BASOPHILS ABSOLUTE 0.02 10/3/uL (0.0-0.16); EOSINOPHILS 4.1 %; EOSINOPHILS ABSOLUTE 0.23 10/3/uL (0.0-0.53); HEMATOCRIT 32.9 % (40.0-51.0); HEMOGLOBIN 10.2 g/dL (13.6-17.8); LYMPHOCYTES 11.7 %; LYMPHOCYTES ABSOLUTE 0.65 10/3/uL (0.67-4.30); MANUAL DIFF NO %; MEAN CORPUSCULAR HEMOGLOB 25.8 pg (26.0-34.0); MEAN CORPUSCULAR VOLUME 83.3 fL (80-100); MEAN PLATELET VOLUME 11.4 fL (9.2-13.0); MONOCYTES 9.5 %; MONOCYTES ABSOLUTE 0.53 10/3/uL (0.21-1.20); NEUTROPHILS 74.3 %; NEUTROPHILS ABSOLUTE 4.14 10/3/uL (2.02-8.40); PLATELET COUNT 187 10/3/uL (150-400); RBC DISTRIBUTION WIDTH 16.8 % (12.0-16.0); RED CELL COUNT 3.95 10/6/uL (4.7-6.1); WHITE BLOOD CELLS 5.6 10/3/uL (4.5-10.5)
[2017-02-24 05:55] LABS: ALBUMIN 3.1 G/DL (3.5-5.0); BUN (BLOOD UREA NITROGEN) 12 MG/DL (6-23); CALCIUM, SERUM 8.6 MG/DL (8.5-10.4); CHLORIDE, SERUM 109 MMOL/L (96-112); CO2 (CARBON DIOXIDE) 25 MMOL/L (24-34); CREATININE 0.77 MG/DL (0.70-1.30); GFR AFRICAN AMERICAN 130 ML/MIN (>=60); GFR NON AFRICAN AMERICAN 112 ML/MIN (>=60); PHOSPHORUS, SERUM 2.2 MG/DL (2.5-4.5); POTASSIUM, SERUM 3.5 MMOL/L (3.5-5.3); SODIUM, SERUM 142 MMOL/L (135-148)
[2017-02-24 05:57] LABS: GLUCOSE, SERUM 81 MG/DL (60-99)
[2017-02-25 05:18] LABS: BASOPHILS 0.1 %; BASOPHILS ABSOLUTE 0.01 10/3/uL (0.0-0.16); EOSINOPHILS 0.7 %; EOSINOPHILS ABSOLUTE 0.05 10/3/uL (0.0-0.53); HEMATOCRIT 32.5 % (40.0-51.0); IMMATURE GRANULOCYTES 0.1 %; IMMATURE GRANULOCYTES ABSOLUTE 0.01 10/3/uL (0.0-0.11); LYMPHOCYTES 9.4 %; LYMPHOCYTES ABSOLUTE 0.71 10/3/uL (0.67-4.30); MEAN CORPUS HGB CONC 30.8 g/dL (32.0-36.0); MEAN CORPUSCULAR HEMOGLOB 25.6 pg (26.0-34.0); MEAN CORPUSCULAR VOLUME 83.3 fL (80-100); MEAN PLATELET VOLUME 11.4 fL (9.2-13.0); MONOCYTES ABSOLUTE 0.83 10/3/uL (0.21-1.20); NEUTROPHILS 78.7 %; NEUTROPHILS ABSOLUTE 5.91 10/3/uL (2.02-8.40); PLATELET COUNT 182 10/3/uL (150-400); RBC DISTRIBUTION WIDTH 16.8 % (12.0-16.0); WHITE BLOOD CELLS 7.5 10/3/uL (4.5-10.5)
[2017-02-25 05:20] LABS: MANUAL DIFF NO %
[2017-02-25 05:49] LABS: BUN (BLOOD UREA NITROGEN) 11 MG/DL (6-23); CALCIUM, SERUM 8.4 MG/DL (8.5-10.4); CHLORIDE, SERUM 110 MMOL/L (96-112); CO2 (CARBON DIOXIDE) 26 MMOL/L (24-34); CREATININE 0.85 MG/DL (0.70-1.30); GFR AFRICAN AMERICAN 125 ML/MIN (>=60); GFR NON AFRICAN AMERICAN 107 ML/MIN (>=60); GLUCOSE, SERUM 94 MG/DL (60-99); SODIUM, SERUM 142 MMOL/L (135-148)
[2017-02-26 05:06] LABS: BASOPHILS 0 %; EOSINOPHILS 0.4 %; EOSINOPHILS ABSOLUTE 0.02 10/3/uL (0.0-0.53); HEMATOCRIT 30.8 % (40.0-51.0); HEMOGLOBIN 9.4 g/dL (13.6-17.8); IMMATURE GRANULOCYTES 0.2 %; IMMATURE GRANULOCYTES ABSOLUTE 0.01 10/3/uL (0.0-0.11); LYMPHOCYTES 12.3 %; LYMPHOCYTES ABSOLUTE 0.69 10/3/uL (0.67-4.30); MEAN CORPUS HGB CONC 30.5 g/dL (32.0-36.0); MEAN CORPUSCULAR HEMOGLOB 25.9 pg (26.0-34.0); MEAN CORPUSCULAR VOLUME 84.8 fL (80-100); MEAN PLATELET VOLUME 11.4 fL (9.2-13.0); MONOCYTES 12.5 %; NEUTROPHILS 74.6 %; NEUTROPHILS ABSOLUTE 4.17 10/3/uL (2.02-8.40); PLATELET COUNT 168 10/3/uL (150-400); RBC DISTRIBUTION WIDTH 17.1 % (12.0-16.0); RED CELL COUNT 3.63 10/6/uL (4.7-6.1); WHITE BLOOD CELLS 5.6 10/3/uL (4.5-10.5)
[2017-02-26 05:08] LABS: MANUAL DIFF NO %
[2017-02-26 05:21] LABS: BUN (BLOOD UREA NITROGEN) 12 MG/DL (6-23); CALCIUM, SERUM 8.8 MG/DL (8.5-10.4); CHLORIDE, SERUM 110 MMOL/L (96-112); CO2 (CARBON DIOXIDE) 28 MMOL/L (24-34); CREATININE 0.86 MG/DL (0.70-1.30); GFR AFRICAN AMERICAN 124 ML/MIN (>=60); GFR NON AFRICAN AMERICAN 107 ML/MIN (>=60); GLUCOSE, SERUM 101 MG/DL (60-99); POTASSIUM, SERUM 4.2 MMOL/L (3.5-5.3); SODIUM, SERUM 144 MMOL/L (135-148)
[2017-02-27 06:06] LABS: BASOPHILS 0.1 %; BASOPHILS ABSOLUTE 0.01 10/3/uL (0.0-0.16); EOSINOPHILS 0.6 %; EOSINOPHILS ABSOLUTE 0.05 10/3/uL (0.0-0.53); HEMATOCRIT 31.9 % (40.0-51.0); HEMOGLOBIN 9.7 g/dL (13.6-17.8); IMMATURE GRANULOCYTES 0.2 %; IMMATURE GRANULOCYTES ABSOLUTE 0.02 10/3/uL (0.0-0.11); LYMPHOCYTES 11.6 %; LYMPHOCYTES ABSOLUTE 0.95 10/3/uL (0.67-4.30); MEAN CORPUS HGB CONC 30.4 g/dL (32.0-36.0); MEAN CORPUSCULAR HEMOGLOB 25.6 pg (26.0-34.0); MEAN CORPUSCULAR VOLUME 84.2 fL (80-100); MEAN PLATELET VOLUME 11.3 fL (9.2-13.0); NEUTROPHILS 76.5 %; NEUTROPHILS ABSOLUTE 6.24 10/3/uL (2.02-8.40); PLATELET COUNT 195 10/3/uL (150-400); RBC DISTRIBUTION WIDTH 17.3 % (12.0-16.0); RED CELL COUNT 3.79 10/6/uL (4.7-6.1)
[2017-02-27 06:07] LABS: MANUAL DIFF NO %; WHITE BLOOD CELLS 8.2 10/3/uL (4.5-10.5)
[2017-02-27 06:21] LABS: ALBUMIN 2.9 G/DL (3.5-5.0); BUN (BLOOD UREA NITROGEN) 11 MG/DL (6-23); CALCIUM, SERUM 9.1 MG/DL (8.5-10.4); CHLORIDE, SERUM 111 MMOL/L (96-112); CO2 (CARBON DIOXIDE) 28 MMOL/L (24-34); GFR AFRICAN AMERICAN 122 ML/MIN (>=60); GFR NON AFRICAN AMERICAN 105 ML/MIN (>=60); PHOSPHORUS, SERUM 2.7 MG/DL (2.5-4.5); POTASSIUM, SERUM 3.8 MMOL/L (3.5-5.3); SODIUM, SERUM 144 MMOL/L (135-148)
[2017-02-27 06:23] LABS: GLUCOSE, SERUM 77 MG/DL (60-99)
[2017-02-27] MEDS ORDERED: LEVAQUIN750 MG PO (09:09)
[2017-02-27] MEDS ORDERED: P20 PO (09:10)
[2017-02-27] MEDS ORDERED: ZOFRAN ODT4 MG PO (09:12)
[2017-02-27] MEDS ORDERED: PROTONIX PO ×2 (09:12)
[2017-02-27] MEDS ORDERED: METPAKSF PO (09:13)
[2017-02-27] MEDS ORDERED: FLAG500TAB PO (09:14)
[2017-02-27] MEDS ORDERED: PCET PO (09:18)
[2017-03-04] MEDS ORDERED: ULTRAM50 PO (10:47)
[2017-03-04] MEDS ORDERED: REG PO (10:47)
== END 2017-02-27 10:25 | disposition home or self-care (01) | DRG 392 ==
LOC: ER 10:09 → 4EA 10:41
PROVIDERS: Emergency Medicine; Internal Medicine; Nurse Practitioner Adult Health; Nurse Practitioner Family
DX: K52.89 Other specified noninfective gastroenteritis and colitis (principal); R62.7 Adult failure to thrive; K21.9 Gastro-esophageal reflux disease without esophagitis; K52.9 Noninfective gastroenteritis and colitis, unspecified; Z88.4 Allergy status to anesthetic agent; Z88.8 Allergy status to other drugs, medicaments and biological substances; Z72.0 Tobacco use; Z90.49 Acquired absence of other specified parts of digestive tract; Z85.038 Personal history of other malignant neoplasm of large intestine; Z98.0 Intestinal bypass and anastomosis status; Z85.820 Personal history of malignant melanoma of skin; Z92.21 Personal history of antineoplastic chemotherapy; Z92.3 Personal history of irradiation; K62.89 Other specified diseases of anus and rectum; R63.4 Abnormal weight loss; Z68.24 Body mass index [BMI] 24.0-24.9, adult
CPT/HCPCS: 74177; 80048; 80053; 80069; 81001; 82533; 82656; 83605; 83690; 83735; 83986; 84145; 84443; 85025; 85652; 86141; 87045; 87046; 87046-59; 87328; 87329; 87493; 87493-59; 87899; 87899-59; 89055; 89125; 96374; 96375; 99285; A9270-GY; J1170; J2405; J2920; Q9967